=== PATIENT | female | born 1950 | race American Indian/Alaskan Native ===

== ENCOUNTER 2017-12-01 00:43 | Emergency (ER) | payer MEDICARE ==
[2017-12-01 01:25] LABS: Basophils # (Auto) 0.1 K/mm3 (0.0-0.1); Basophils % (Auto) 0.7 % (0.0-1.8); Eosinophils # (Auto) 0.6 K/mm3 (0.0-0.4); Eosinophils % (Auto) 4.9 % (0.0-4.3); Hematocrit 45.4 % (30.3-42.9); Hemoglobin 14.7 gm/dl (10.1-14.3); Lymphocytes % (Auto) 24.1 % (13.4-35.0); Mean Corpuscular HGB Conc 32 % (30-34); Mean Corpuscular Hemoglobin 30 pg (28-32); Mean Corpuscular Volume 92 fl (79-97); Monocytes # (Auto) 0.6 K/mm3 (0.0-0.8); Monocytes % (Auto) 4.9 % (0.0-7.3); Platelet Count 222 K/mm3 (140-440); Red Blood Count 4.96 M/mm3 (3.65-5.03); Red Cell Distribution Width 14.8 % (13.2-15.2)
[2017-12-01] MEDS ORDERED: ATROVENT IH ONE (01:33)
[2017-12-01] MEDS ORDERED: PROVENTIL IH ONE (01:33)
--- NOTE | 2017-12-01 01:39 | Emergency Department Report ---
HPI - General Chief Complaint: Dyspnea/Respdistress Time Seen by Provider: 12/01/17 01:24 - HPI HPI: Room 19 The patient is a 67-year-old female presenting with a chief complaint of shortness of breath. The patient states approximately 2-3 days ago she developed cough that was nonproductive. The patient states today she developed shortness of breath but her albuterol did not help. EMS was called. Per EMS the patient was satting approximately 88% on room air. Patient was placed on CPAP and administer Solu-Medrol 125 mg IV and magnesium sulfate 1 g. Patient states she feels like she has improved significantly Location: Lungs Duration: [See above] Quality: Shortness of breath Severity: 88% on room air Modifying factors: [see above] Context: [see above] Mode of transportation: [not driving] ED Past Medical Hx - Past Medical History Previous Medical History?: Yes Hx Hypertension: Yes Hx Heart Attack/AMI: Yes (2010) Additional medical history: Chronic bronchitis - Surgical History Past Surgical History?: No - Family History Family history: no significant - Social History Smoking Status: Current Every Day Smoker Substance Use Type: None (denies illicit drug use) ED Review of Systems ROS: Stated complaint: CRYSTAL Other details as noted in HPI Constitutional: denies: fever Eyes: denies: eye pain ENT: denies: throat pain Respiratory: cough, shortness of breath, wheezing Cardiovascular: denies: chest pain Gastrointestinal: nausea, vomiting. denies: abdominal pain Genitourinary: denies: dysuria Musculoskeletal: denies: back pain Neurological: denies: headache Physical Exam - Physical Exam Vital Signs: Vital Signs 12/01/17 12/01/17 00:55 01:09 Temperature 97.6 F Pulse Rate 70 Respiratory 24 24 Rate Blood Pressure 150/84 O2 Sat by Pulse 98 97 Oximetry Physical Exam: GENERAL: The patient is well-developed well-nourished female sitting on stretcher receiving BiPAP not appear to be in acute distress HEENT: Normocephalic. Atraumatic. Extraocular motions are intact. Patient has moist mucous membranes. NECK: Supple. Trachea midline CHEST/LUNGS: Diffuse wheezing auscultated. There is no respiratory distress noted. HEART/CARDIOVASCULAR: Regular. There is no tachycardia. There is no gallop rub or murmur. ABDOMEN: Abdomen is soft, nontender. Patient has normal bowel sounds. There is no abdominal distention. SKIN: There is no rash. There is no edema. There is no diaphoresis. NEURO: The patient is awake, alert, and oriented. The patient is cooperative. The patient has normal speech MUSCULOSKELETAL: There is no evidence of acute injury. ED Course Vital Signs 12/01/17 12/01/17 00:55 01:09 Temperature 97.6 F Pulse Rate 70 Respiratory 24 24 Rate Blood Pressure 150/84 O2 Sat by Pulse 98 97 Oximetry ED Medical Decision Making - Lab Data Result diagrams: 12/01/17 01:13 12/01/17 01:13 Laboratory Tests 12/01/17 12/01/17 12/01/17 01:13 01:13 01:13 WBC 12.3 H RBC 4.96 Hgb 14.7 H Hct 45.4 H MCV 92 MCH 30 MCHC 32 RDW 14.8 Plt Count 222 Lymph % (Auto) 24.1 [place] % (Auto) 4.9 Eos % (Auto) 4.9 H Baso % (Auto) 0.7 Lymph # 3.0 [place] # 0.6 Eos # 0.6 H Baso # 0.1 Seg Neutrophils % 65.4 Seg Neutrophils # 8.1 H Sodium 138 Potassium 4.5 Chloride 98.4 Carbon Dioxide 26 Anion Gap 18 BUN 18 H Creatinine 0.7 Estimated GFR > 60 BUN/Creatinine Ratio 26 Glucose 165 H Calcium 8.7 Total Creatine Kinase 87 CK-MB (CK-2) 1.5 CK-MB (CK-2) Rel Index 1.7 Troponin T < 0.010 - EKG Data -: EKG Interpreted by Me EKG shows normal: sinus rhythm Rate: normal - EKG Data When compared to previous EKG there are: previous EKG unavailable Interpretation: nonspecific ST-T wave seda (T-wave inversions in leads 2, 3, aVF , V3, V4, V5, V6) - Radiology Data Radiology results: image reviewed (chest x-ray) interpreted by me: Chest x-ray-no focal infiltrates, no pneumothorax - Differential Diagnosis COPD, pneumonia, bronchitis, ACS Critical care attestation.: If time is entered above; I have spent that time in minutes in the direct care of this critically ill patient, excluding procedure time. ED Disposition Clinical Impression: Shortness of breath, COPD exacerbation, T wave inversion in EKG Disposition: DC-09 OP ADMIT IP TO THIS HOSP Is pt being admited?: Yes Does the pt Need Aspirin: Yes Condition: Fair Instructions: Chronic Obstructive Pulmonary Disease (ED) Referrals: KARISHMA BE MD [Primary Care Provider] - 3-5 Days Time of Disposition: 03:04 (hospitalist paged (Dr. Bettina Dos Santos))
[2017-12-01 01:50] LABS: Creatine Kinase MB 1.5 ng/mL (0.0-4.0)
[2017-12-01 01:51] LABS: BUN/Creatinine Ratio 26; Blood Urea Nitrogen 18 mg/dL (7-17); Calcium 8.7 mg/dL (8.4-10.2); Hemolysis Index 2
[2017-12-01] MEDS ORDERED: ASPIRIN PO ONE (03:04)
--- NOTE | 2017-12-01 04:17 | XRay Report ---
FINAL REPORT EXAM: XR CHEST 1V AP HISTORY: Shortness of breath TECHNIQUE: AP portable view(s) of the chest obtained. PRIORS: None. FINDINGS: No mediastinal shift. Cardiac silhouette is not enlarged. No pneumothorax, effusion, or focal pulmonary opacity identified. No acute skeletal findings. IMPRESSION: No acute pulmonary finding identified.
[2017-12-01 12:48] VITALS: BP 157/91
== END 2017-12-01 12:49 | disposition admitted as inpatient to this hospital (09) ==
LOC: ED 00:43
DX: J44.1 Chronic obstructive pulmonary disease with (acute) exacerbation (principal); F17.200 Nicotine dependence, unspecified, uncomplicated; I11.0 Hypertensive heart disease with heart failure
CPT/HCPCS: 36415; 71045; 80048; 82550; 82553; 82803; 84484; 85025; 93005; 93010